=== PATIENT | female | born 1930 | race Caucasian/White ===

== ENCOUNTER → 2016-09-11 | Day surgery (SDC) | payer OTHER ==
[~2016-09-11] MED LIST: ALBUTEROL17 GM INH; ATARAX PO; BACTRIM DS TABL1 TAB PO; CARAFATE1 G PO; CLARITIN10 M3 PO; CLARITIN10 MG/TAB PO; COMBIVENT INH14.7 GM INH; COMBIVENT U/D3 ML INH; EFFER-K 20 MEQ20 MEQ; HYDROCODON-ACE1 EACH PO; K-DUR20 ME1 PO; LASIX PO; LASIX20 MG PO; LIPITOR PO; LORTAB 5/500 TA1 TA1 PO; LORTAB 5/500 TA1 TA2 PO; NEXIUM PO; OYSTER CALCIUM500 MG PO; PHILLIPS500 MG PO; POTASSIUM CHLO10 ME1 PO; POTASSIUM1 UDCAP.SA PO; PROBIOTIC FORM1 EACH PO; PROTONIX PO; VICODIN 5/500 T1 TAB PO; VITAMIN D50000 UNIT PO; Z-PAK
--- NOTE | ~2016-09-11 | OR ---
Unit #: [id number] #: [id number] Patient: JAMAR GARCIA [id number] [address] [address] [id number] O MR#: [id number] NAME: JAMAR GARCIA. ROOM: Date of Procedure: 09/11/2016 Admission Date: 09/11/2016 Surgeon: Rubén Lord M.D. : 1930 Attending Physician: Rubén Lord M.D. Primary Care Physician: Dennis Barnett M.D. OPERATIVE REPORT PREOPERATIVE DIAGNOSES 1. Back pain. 2. Radiculopathy. 3. Degenerative disk disease. 4. Spondylolisthesis. POSTOPERATIVE DIAGNOSES 1. Back pain. 2. Radiculopathy. 3. Degenerative disk disease. 4. Spondylolisthesis. PROCEDURE PERFORMED Lumbar epidural steroid injection with intravenous sedation and fluoroscopic guidance for needle localization. INDICATIONS FOR PROCEDURE The patient is an 85-year-old female with return of her right buttock, hips, and some lower extremity pain associated with multilevel multifactorial nonsurgical degenerative disk and spine disease with spondylolisthesis. She was last treated about a year ago with epidural steroids and did very well until recently. Prior to that, she had been treated about 3 years earlier. Based on history, pathology, and symptomatology, we are going to proceed with a repeat injection today. DESCRIPTION OF PROCEDURE The patient was placed in a seated position. Standard monitors were applied. 1 mg of Versed was given for sedation and anxiolysis, which were adequate. Vital signs remained stable. Sterile prep and drape then of the lumbar area was performed. The skin then to the right of midline at approximately L2 level was localized with 1% lidocaine. An 18-gauge Supponortead needle was then advanced via right paramedian approach and loss of resistance technique in toward the epidural space. The patient did not complain of pain or paresthesia. After confirming proper positioning with fluoroscopy and radiographic contrast, 80 mg of Depo-Medrol and 6 mL of 0.125% bupivacaine were deposited. The patient tolerated the procedure otherwise well and was discharged to the recovery room in stable condition. Dictated by... Rubén Lord M.D. Unit #: [id number] #: [id number] Patient: JAMAR GARCIAP/alfl TD: 09/11/2016 09:07 JOB #: [id number] OPERATIVE REPORT X Rubén Lord MD X PROCEDURE OPERATIVE NOTE
== END | disposition home or self-care (01) ==
LOC: CCSC 07:00
DX: M51.16 Intervertebral disc disorders with radiculopathy, lumbar region (principal); M43.16 Spondylolisthesis, lumbar region
CPT/HCPCS: J1040; J2250

== ENCOUNTER → 2016-10-16 | Day surgery (SDC) | payer OTHER ==
--- NOTE | ~2016-10-16 | OR ---
Unit #: [id number] #: [id number] Patient: JAMAR GARCIA [id number] [facility]. [place], [place] [address] [id number] O MR#: [id number] NAME: JAMAR GARCIA ROOM: Date of Procedure: 10/16/2016 Admission Date: 10/16/2016 Surgeon: Rubén Lord M.D. : 1930 Attending Physician: Rubén Lord M.D. Primary Care Physician: Dennis Barnett M.D. OPERATIVE REPORT PREOPERATIVE DIAGNOSES Back pain, radiculopathy, spondylolisthesis, degenerative disk disease and spinal stenosis. POSTOPERATIVE DIAGNOSIS Back pain, radiculopathy, spondylolisthesis, degenerative disk disease and spinal stenosis. PROCEDURE PERFORMED Lumbar epidural steroid injection with intravenous sedation under fluoroscopic guidance for needle localization. INDICATIONS FOR PROCEDURE The patient is an 85-year-old female with pain from her back, the right buttock, foot and leg. She has had problems in the past and has done very well with epidural steroids back three to four years ago. With this radicular irritation and her known significant pathology, decision was made to give a repeat trial of epidural steroids. Two have been done over the last two months. They gave her excellent initial improvement. The pain returned at different times. She has been to the ER twice in the last five weeks. Overall, she still is doing better. Maybe that her pathology has progressed and this may continue to be a difficult issue. Plan is to repeat injection today at a slightly lower lumbar entry level account representative. DESCRIPTION OF PROCEDURE The patient was placed in a seated position. Standard monitors were applied. Sterile prep and drape of the lumbar area was performed. Then, 1 mg of Versed was given for sedation and anxiolysis, which was adequate. Vital signs remained stable. Sterile prep and drape then of the lumbar area was performed. The skin then to the right of midline at the L4 level was localized with 1% lidocaine. An 18-gauge Purkinjetead needle was then advanced via right paramedian approach and loss of resistance in toward the epidural space. After confirming proper positioning with fluoroscopy and radiographic contrast, 80 mg of Depo-Medrol and 4 mL of 0.125% bupivacaine were deposited. The patient tolerated the procedure otherwise well and was discharged to the recovery room in stable condition. Dictated by... Rubén Lord M.D. [facility] Unit #: [id number] #: [id number] Patient: JAMAR GARCIA TD: 10/16/2016 08:40 JOB #: [id number] OPERATIVE REPORT Page 1 of 1 X Rubén Lord MD X PROCEDURE OPERATIVE NOTE
== END | disposition home or self-care (01) ==
LOC: CCSC 06:44
DX: M51.16 Intervertebral disc disorders with radiculopathy, lumbar region (principal); M43.06 Spondylolysis, lumbar region; M48.06 Spinal stenosis, lumbar region
CPT/HCPCS: J1040; J2250

== ENCOUNTER → 2016-11-27 | Day surgery (SDC) | payer OTHER ==
--- NOTE | ~2016-11-27 | OR ---
Unit #: [id number] #: [id number] Patient: JAMAR GARCIA [id number] [facility]. [address] [place], [place] [address] [id number] O MR#: [id number] NAME: JAMAR GARCIA ROOM: Date of Procedure: 11/27/2016 Admission Date: 11/27/2016 Surgeon: Rubén Lord M.D. : 1930 Attending Physician: Rubén Lord M.D. Primary Care Physician: Dennis Barnett M.D. OPERATIVE REPORT PREOPERATIVE DIAGNOSES Back pain, radiculopathy, degenerative disk and spine disease, spondylolisthesis, spinal stenosis. POSTOPERATIVE DIAGNOSES Back pain, radiculopathy, degenerative disk and spine disease, spondylolisthesis, spinal stenosis. PROCEDURE PERFORMED Lumbar epidural steroid injection with fluoroscopic guidance for needle localization. INDICATIONS FOR PROCEDURE The patient is an 85-year-old female with severe multilevel multifactorial degenerative disk and spine disease. She is not a surgical candidate. She has not tolerated medications well. She is very well with epidural steroids help to settle her back and bilateral lower extremity pains and the pain re-flares, she frequently asked to go to the emergency room. She was last treated about 6 weeks ago and done very well. Prior to that, she had injection in 08/2016. Before that, she had done well for almost a year following epidurals. Based on history, pathology, symptomatology, and limited other options, we are going to proceed with a repeat epidural steroid injection today. DESCRIPTION OF PROCEDURE The patient was placed in a seated position. Standard monitors were applied. Sterile prep and drape of the lumbar area was performed. The skin then at the L3 level was localized with 1% lidocaine. An 18-gauge [employer] needle was then advanced via right paramedian approach and loss of resistance technique in toward the epidural space. The patient did not complain of pain or paresthesia during needle advancement. After confirming proper needle tip positioning with fluoroscopy and radiographic contrast, a dose of 80 mg of Depo-Medrol and 4 mL of 0.125% bupivacaine were deposited. The patient tolerated the procedure otherwise well and was discharged to the recovery room in stable condition. Dictated by... Rubén Lord M.D. [facility]/alfl Unit #: [id number] #: [id number] Patient: JAMAR GARCIA TD: 11/27/2016 22:30 JOB #: [id number] OPERATIVE REPORT Page 1 of 1 X Rubén Lord MD X PROCEDURE OPERATIVE NOTE
== END | disposition home or self-care (01) ==
LOC: CCSC 08:36
DX: M51.16 Intervertebral disc disorders with radiculopathy, lumbar region (principal); M48.06 Spinal stenosis, lumbar region; M43.16 Spondylolisthesis, lumbar region
CPT/HCPCS: J1040; J2250